=== PATIENT | male | born 1990 ===

== ENCOUNTER → 2019-06-17 | Outpatient (CLI) | payer BC ==
--- NOTE | 2019-06-17 17:55 | US ---
EXAMINATION TYPE: US scrotum with doppler. Grayscale and color Doppler Duplex imaging performed of mahi baez scrotum. DATE OF EXAM: 06/17/2019 COMPARISON: NONE CLINICAL HISTORY: N50.89 Persistent Testicular Pain. Persistent left testicular pain x 2 weeks. EXAM MEASUREMENTS: TESTICLES: Right Testicle: 3.8 x 2.7 x 2.4 cm Left Testicle: 4.2 x 2.8 x 2.3 cm EPIDIDYMIS HEAD: Right Epididymis: 1.3 x 1.9 x 0.8 cm Left Epididymis: 1.2 x 1.5 x 1.1 cm Bilateral epididymal heads appear heterogeneous. Focal heterogeneous area seen right epididymal head measurin.5 x 0.8 x 0.4 cm. Doppler performed to assess for testicular vascularity; good bilateral color flow and waveforms are s een. There is no evidence of testicular torsion. Presence of hydroceles: Minimal fluid seen lateral to right testicle. Presence of varicoceles: not seen. Vessels lateral to left testicle measure 3 mm. IMPRESSION: There is very small right-sided hydrocele. No testicular torsion or mass. Small right epi didymal hypoechoic area of doubtful and uncertain significance.
== END | disposition home or self-care (01) ==
LOC: RADUSWWP 16:53
PROVIDERS: ATTEND Family Medicine
DX: N43.3 Hydrocele, unspecified (principal)
CPT/HCPCS: 76870; 93975

== ENCOUNTER 2024-04-30 10:42 | Emergency (ER) | payer BC, OTHER ==
[2024-04-30 10:47] VITALS: RESP 18
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
[2024-04-30] MEDS: CEPHALEXIN 500 MG CAP PO STA (12:19)
[2024-04-30] MEDS: BACITRACIN ZINC 500 UNIT/GM OINT 28.4 GM TUBE TOPICAL ONE (12:21)
[2024-04-30 12:23] VITALS: BP 136/78; PULSE 86; TEMP 98.2
== END 2024-04-30 12:24 | disposition home or self-care (01) ==
LOC: EC 10:42
DX: S60.511A Abrasion of right hand, initial encounter (principal); S80.812A Abrasion, left lower leg, initial encounter; Z88.0 Allergy status to penicillin; V89.2XXA Person injured in unspecified motor-vehicle accident, traffic, initial encounter; Y92.411 Interstate highway as the place of occurrence of the external cause
CPT/HCPCS: 99284

== ENCOUNTER 2024-05-06 20:26 | Emergency (ER) | payer OTHER ==
[2024-05-06 20:36] VITALS: TEMP 97.9
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
[2024-05-06] MEDS: BACITRACIN OINT 1 EACH PACKET TOPICAL ONE ×2 (22:49)
[2024-05-06] MEDS: ceFAZolin 1,000 MG VIAL (IM USE) IM STA (22:50)
[2024-05-06] MEDS: ACET/COD 300 MG/30 MG STARTER PACK 6 TAB BTL PO STA (23:05)
[2024-05-06 23:16] VITALS: BP 121/62; PULSE 81; RESP 18
== END 2024-05-06 22:55 | disposition home or self-care (01) ==
LOC: EC 20:26
DX: S80.812A Abrasion, left lower leg, initial encounter (principal); S80.811A Abrasion, right lower leg, initial encounter; Z88.0 Allergy status to penicillin; Y93.55 Activity, bike riding
CPT/HCPCS: 87070; 87205; 72100; 72220; 73590; 99283; 96372; J0690